=== PATIENT | male | born 1975 | race Caucasian/White ===

== ENCOUNTER 2016-07-10 17:45 | Emergency (ER) | payer MEDICAID ==
[~2016-07-10] VITALS: Ht 182.9 cm; Wt 72.6 kg
[2016-07-10 18:02] VITALS: BP 137/90
[2016-07-10] MEDS ORDERED: IBUPROFEN600 MG ORAL (18:59)
[2016-07-10] MEDS ORDERED: CEPHALEXIN500 MG ORAL (18:59)
[2016-07-10] MEDS ORDERED: Cephalexin 500mg cap ORAL ONE (19:00)
[2016-07-10 19:05] VITALS: BP_SYST 137; BP_SYST 142; BP_DIAS 87; BP_DIAS 90
--- NOTE | 2016-07-10 20:43 | Emergency Room Report ---
History of Present Illness General Chief Complaint: Pain Source: EMS Present Illness HPI The patient is a 41-year-old male presenting with bilateral foot pain which began last week. The patient noticed redness and pain to the bottom of both feet which has now extended to the top of the feet. Pain is described as a 10 out of 10 dull ache it is worse with walking. Patient denies any numbness or tingling. The patient states he was seen at another hospital this morning but was only given a topical antibiotic. The patient did not fill this prescription. The patient denies other symptoms including nausea, vomiting, fever, chills, chest pain, shortness of breath Allergies: Coded Allergies: No Known Allergies (Unverified , 07/10/16) Patient History Past Medical History: see triage record, HIV Pertinent Family History: none Reviewed Nursing Documentation: PMH: Agreed, PSxH: Agreed Nursing Documentation-PMH Past Medical History: No History, Except For Review of Systems All Other Systems: negative except mentioned in HPI Physical Exam Vital Signs Date Time Temp Pulse Resp B/P Pulse Ox O2 Delivery O2 Flow Rate FiO2 07/10/16 17:51 96.8 100 16 137/90 97 Room Air Sp02 EP Interpretation: reviewed, normal General Appearance: no apparent distress, alert, GCS 15, non-toxic Head: normocephalic, atraumatic Eyes: bilateral eye PERRL, bilateral eye normal inspection ENT: hearing grossly normal, normal pharynx, no angioedema, normal voice Musculoskeletal: normal range of motion, no calf tenderness, tender - TTP to bilat plantar surfaces of feet Neurologic: alert, oriented x3, responsive, motor strength/tone normal, sensory intact, normal gait, speech normal Psychiatric: judgement/insight normal, memory normal, mood/affect normal, no suicidal/homicidal ideation Skin: normal turgor, rash - erythema to bilat feet Lymphatic: no adenopathy Medical Decision Making PA Attestation Dr. Jimenez is my supervising physician. Patient management was discussed with my supervising physician Diagnostic Impression: Primary Impression: Cellulitis ER Course The patient is a 41-year-old male presenting with bilateral foot pain which began last week. ddx is considered but not limited to cellulitis, abscess, tinea pedis, plantar fasciitis PE: afebrile. NAD Bilat feet: TTP over the plantar surfaces. Erythema of plantar surfaces which extends to dorsal surface. Hot to touch. No edema. No scaling. full AROM. Both feet are cleaned with NS. Feet are dressed with xeroform and kerlix and will he will be DC'ed with prescription for keflex and motrin. ER precautions given Last Vital Signs Date Time Temp Pulse Resp B/P Pulse Ox O2 Delivery O2 Flow Rate FiO2 07/10/16 19:05 97.0 84 15 142/87 98 Room Air Status: improved Disposition: HOME, SELF-CARE Condition: Improved Scripts Cephalexin* (KEFLEX*) 500 Mg Capsule 500 MG ORAL EVERY 6 HOURS, #28 CAP Prov: GABRIEL JOSE 07/10/16 Ibuprofen* (MOTRIN*) 600 Mg Tablet 600 MG ORAL Q8H Y for For Pain, #30 TAB 0 Refills Prov: GABRIEL JOSE 07/10/16 Referrals: NOT CHOSEN IPA/MD,REFERRING (PCP) Patient Instructions: Cellulitis Additional Instructions: I discussed my findings with the patient. All questions and concerns have been answered. Treatment and medication compliance have been addressed. I advised the patient that they need to follow up with PMD in 3-5 days. Return to ED if symptoms worsen, new symptoms arise, or if needed for any reason. Patient verbalized understanding of discharge instructions. GABRIEL JOSE Jul 10, 2016 20:43
== END 2016-07-10 19:05 | disposition home or self-care (01) ==
LOC: EDBD 17:45 → EMR 18:22
DX: L03.116 Cellulitis of left lower limb (principal); L03.115 Cellulitis of right lower limb; M79.672 Pain in left foot; M79.671 Pain in right foot
CPT/HCPCS: 99284